=== PATIENT | male | born 1985 | race Caucasian/White ===

== ENCOUNTER → 2019-03-19 | Outpatient (CLI) | payer BC ==
[~2019-03-19] MED LIST: OMEP40CA6 PO; PROP20TA PO; VENL75CA PO; ZOLP10TA PO
[2019-03-19 19:18] LABS: HEMOGLOBIN A1C 7.7 % (4.2-6.3)
== END | disposition home or self-care (01) ==
LOC: LAB 18:11
PROVIDERS: ATTEND Nurse Practitioner Family
DX: R73.01 Impaired fasting glucose (principal); R94.5 Abnormal results of liver function studies
CPT/HCPCS: 36415; 80074; 83036

== ENCOUNTER 2020-04-20 05:01 | Emergency (ER) | payer BC ==
[~2020-04-20] VITALS: Ht 182.9 cm; Wt 187.1 kg
[~2020-04-20 05:01] MED LIST changes: +OMEP40CA42 PO; -OMEP40CA6 PO
[2020-04-20 05:03] VITALS: BP 165/96
--- NOTE | 2020-04-20 05:16 | NUR ---
PT ABLE TO AMBULATE TO AND FROM BATHROOM WITH STEADY GAIT.
--- NOTE | 2020-04-20 05:29 | NUR ---
PT TO ED WITH C/O HIGH BLOOD SUGAR AT HOME 333. BLOOD SUGAR 309 UPON TRIAGE. PT REPORTS "FEELING WEIRD" UNABLE TO EXPLAIN FURTHER. PT PLACED ON MONITORING, CALL LIGHT WITHIN REACH.
--- NOTE | 2020-04-20 05:56 | NUR ---
PT UP TO BATHROOM WITH STEADY GAIT.
[2020-04-20 06:10] LABS: ANION GAP 7 mmol/L (5-15); CALCIUM 8.7 mg/dL (8.5-10.1); CHLORIDE 101 mmol/L (98-107); CREATININE 0.88 mg/dL (0.7-1.3)
--- NOTE | 2020-04-20 06:48 | NUR ---
RECEIVED REPORT FROM JAY VALLE, PLAN OF CARE DISCUSSED
--- NOTE | 2020-04-20 06:59 | NUR ---
Patient/Caregiver given discharge instructions and they have confirmed that they understand the instructions. Patient ambulatory with steady gait.
== END 2020-04-20 07:00 | disposition home or self-care (01) ==
LOC: ED 05:28
DX: E11.65 Type 2 diabetes mellitus with hyperglycemia (principal); Z91.19 Patient's noncompliance with other medical treatment and regimen
CPT/HCPCS: 36415; 80048; 82040; 82962; 99283